=== PATIENT | female | born 1990 | race African-American/Black ===

== ENCOUNTER 2016-08-10 05:13 | Emergency (ER) | payer SELFPAY | END 2016-08-10 05:18 | disposition home or self-care (01) | LOC: ER 05:13 | DX: L50.0 Allergic urticaria (principal); I95.9 Hypotension, unspecified; Z91.041 Radiographic dye allergy status; Z91.013 Allergy to seafood | CPT/HCPCS: 93005; 96372; 96374; 96375; 99285; A9270-GY; J1200; J2930 ==